=== PATIENT | female | born 1980 | race Caucasian/White ===

== ENCOUNTER → 2019-02-01 | Outpatient (CLI) | payer BC | LOC: COL.RAD 15:45 | DX: R19.09 Other intra-abdominal and pelvic swelling, mass and lump (principal); R59.0 Localized enlarged lymph nodes ==

== ENCOUNTER → 2019-02-28 | Outpatient (CLI) | payer BC | LOC: COL.RAD 08:55 | DX: Z01.812 Encounter for preprocedural laboratory examination (principal); R59.0 Localized enlarged lymph nodes; R60.0 Localized edema; Z98.82 Breast implant status; Z90.710 Acquired absence of both cervix and uterus | CPT/HCPCS: Q9967 ==

== ENCOUNTER → 2019-03-06 | Outpatient (CLI) | payer BC | LOC: ZCOL.LAB 18:04 | DX: Z01.89 Encounter for other specified special examinations (principal) ==